=== PATIENT | male | born 1990 ===

== ENCOUNTER 2021-08-11 10:26 | Emergency (ER) | payer MEDICAID ==
[~2021-08-11] VITALS: Ht 172.7 cm; Wt 82.3 kg
[2021-08-11 10:44] VITALS: BP 137/80
[2021-08-11] MEDS ORDERED: AMOX-277 PO (11:50)
== END 2021-08-11 12:04 | disposition home or self-care (01) ==
LOC: ER 10:26
DX: S61.212A Laceration without foreign body of right middle finger without damage to nail, initial encounter (principal); S61.252A Open bite of right middle finger without damage to nail, initial encounter; Z79.2 Long term (current) use of antibiotics; W54.0XXA Bitten by dog, initial encounter; Y93.89 Activity, other specified; Y92.89 Other specified places as the place of occurrence of the external cause; Y99.8 Other external cause status
CPT/HCPCS: 12002; 99283; J2001